=== PATIENT | male | born 1960 | race Caucasian/White ===

== ENCOUNTER 2016-06-27 21:12 | Emergency (ER) | payer OTHER ==
[~2016-06-27 21:12] MED LIST: ASPIRIN EC81 MG PO; CORDARONE 200M200 MG PO; COZAAR50 MG PO; ELIQUIS5 MG PO; FEXOFENADINE HC60 MG PO; ISOSORBIDE MONO60 MG PO; K-DUR TAB 20 M20 MEQ PO; LASIX 40 MG TAB40 MG PO; LIPITOR TAB 2020 MG PO; MONTELUKAST SOD10 MG PO; NEURONTIN 300300 MG PO; PANTOPRAZOLE SO40 MG PO; SOTALOL160 MG PO
== END 2016-06-27 22:08 | disposition left against medical advice (07) ==
LOC: ER1 21:12
DX: Z53.21 Procedure and treatment not carried out due to patient leaving prior to being seen by health care provider (principal)
CPT/HCPCS: J7030; J7050

== ENCOUNTER 2016-06-28 10:16 | Emergency (ER) | payer OTHER ==
[2016-06-28 11:50] LABS: HEMOGLOBIN 13.2 gm/dl (14.0-17.5); RED BLOOD COUNT 3.84 M/UL (4.20-5.50); WHITE BLOOD COUNT 5.7 K/UL (4.5-11.0)
[2016-06-28 12:08] LABS: BUN/CREATININE RATIO 7 (0-10)
== END 2016-06-28 16:25 | disposition home or self-care (01) ==
LOC: ER1 10:16
PROVIDERS: Family Medicine
DX: S20.212A Contusion of left front wall of thorax, initial encounter (principal); G89.4 Chronic pain syndrome; R10.12 Left upper quadrant pain; W01.0XXA Fall on same level from slipping, tripping and stumbling without subsequent striking against object, initial encounter; Z88.5 Allergy status to narcotic agent; Z79.52 Long term (current) use of systemic steroids; Z79.899 Other long term (current) drug therapy
CPT/HCPCS: 71250; 74150; 80053; 81001; 82150; 83690; 85025; 96361; 96374; 99285; J2550; J7030; J7050

== ENCOUNTER → 2016-06-30 | Outpatient (CLI) | payer OTHER ==
[~2016-06-30] MED LIST changes: +ASPIR 8181 MG PO; +LORTAB 5-325 M1 EACH PO
== END ==
LOC: KOH-I 10:52
DX: M25.559 Pain in unspecified hip (principal); Z98.890 Other specified postprocedural states; M16.0 Bilateral primary osteoarthritis of hip; Z91.041 Radiographic dye allergy status; Z88.5 Allergy status to narcotic agent; Z88.8 Allergy status to other drugs, medicaments and biological substances
CPT/HCPCS: 73522

== ENCOUNTER 2016-07-03 10:35 | Emergency (ER) | payer OTHER ==
[~2016-07-03 10:35] MED LIST changes: -ASPIR 8181 MG PO; -LORTAB 5-325 M1 EACH PO
[2016-07-03 12:02] LABS: HEMOGLOBIN 12.5 gm/dl (14.0-17.5); RED BLOOD COUNT 3.63 M/UL (4.20-5.50); WHITE BLOOD COUNT 6.2 K/UL (4.5-11.0)
[2016-07-03 12:24] LABS: BUN/CREATININE RATIO 11 (0-10)
== END 2016-07-03 14:35 | disposition home or self-care (01) ==
LOC: ER1 10:35
PROVIDERS: Emergency Medicine
DX: J06.9 Acute upper respiratory infection, unspecified (principal); E87.6 Hypokalemia; R11.10 Vomiting, unspecified; J44.9 Chronic obstructive pulmonary disease, unspecified; Z95.5 Presence of coronary angioplasty implant and graft; Z88.5 Allergy status to narcotic agent; Z79.01 Long term (current) use of anticoagulants; Z79.899 Other long term (current) drug therapy
CPT/HCPCS: 36415; 71010; 80053; 83735; 83880; 84484; 85025; 87040; 87081; 87880; 93005; 94664; 96361; 96374; 99284; J2405; J7030

== ENCOUNTER → 2016-07-07 | Outpatient (CLI) | payer OTHER ==
[~2016-07-07] MED LIST changes: +ASPIR 8181 MG PO; +LORTAB 5-325 M1 EACH PO
== END ==
LOC: KOH-I 11:44
DX: M54.5 Low back pain (principal); M47.816 Spondylosis without myelopathy or radiculopathy, lumbar region
CPT/HCPCS: 72110

== ENCOUNTER 2016-07-31 13:24 | Observation (INO) | payer OTHER ==
[~2016-07-31] VITALS: Ht 170.2 cm; Wt 114.0 kg
[~2016-07-31 13:24] MED LIST changes: -ASPIR 8181 MG PO; -LORTAB 5-325 M1 EACH PO
[2016-07-31 14:34] LABS: HEMOGLOBIN 11.9 gm/dl (14.0-17.5); RED BLOOD COUNT 3.42 M/UL (4.20-5.50); WHITE BLOOD COUNT 7.5 K/UL (4.5-11.0)
[2016-07-31 14:53] LABS: BUN/CREATININE RATIO 10 (0-10)
[2016-07-31] MEDS ORDERED: ASPIR 8181 MG PO (21:21)
[2016-07-31] MEDS ORDERED: K-DUR TAB 20 M20 MEQ PO (21:21)
[2016-07-31] MEDS ORDERED: LORTAB 5-325 M1 EACH PO (21:22)
[2016-07-31] MEDS ORDERED: SOTALOL160 MG PO (21:23)
== END 2016-08-01 20:17 | disposition home or self-care (01) ==
LOC: ER1 13:24 → M/S 17:09 → ZEROF 17:09 → M/S 20:35
PROVIDERS: Emergency Medicine; ADMIT Family Medicine
DX: R07.89 Other chest pain (principal); R10.9 Unspecified abdominal pain; M25.512 Pain in left shoulder; I25.10 Atherosclerotic heart disease of native coronary artery without angina pectoris; I48.91 Unspecified atrial fibrillation; M79.605 Pain in left leg; G89.29 Other chronic pain; I10 Essential (primary) hypertension; K21.9 Gastro-esophageal reflux disease without esophagitis; M25.552 Pain in left hip; I45.81 Long QT syndrome; E78.5 Hyperlipidemia, unspecified; E66.9 Obesity, unspecified; I48.0 Paroxysmal atrial fibrillation; Z79.01 Long term (current) use of anticoagulants; Z79.82 Long term (current) use of aspirin; Z79.899 Other long term (current) drug therapy; Z91.041 Radiographic dye allergy status; Z88.5 Allergy status to narcotic agent; Z88.8 Allergy status to other drugs, medicaments and biological substances; Z98.61 Coronary angioplasty status; Z68.39 Body mass index [BMI] 39.0-39.9, adult; Z96.643 Presence of artificial hip joint, bilateral; I27.2 Other secondary pulmonary hypertension
CPT/HCPCS: 36415; 71010; 71250; 73030; 80053; 80061; 82550; 82553; 83874; 83880; 84132; 84484; 85025; 85610; 85730; 93005; 96360; 99285; G0378; J7030